=== PATIENT | female | born 1990 | race African-American/Black ===

== ENCOUNTER 2019-10-01 09:37 | Emergency (ER) | payer MEDICAID, SELFPAY ==
[2019-10-01 09:37] VITALS: BP 139/91; PULSE 112; RESP 16; TEMP 36.1; O2SAT 100; BMI 31.6
--- NOTE | 2019-10-01 09:44 | RAD_ITS ---
STUDY: X-RAY - LEFT FOOT CLINICAL: Female, 29 years old. PT FELL DOWN STAIRS, PAIN AND SWELLING ACROSS TOP OF FOOT TECHNIQUE: 3 view(s) of the foot. COMPARISON: None. FINDINGS: Normal talus, calcaneus, and tarsal bones. Normal visualized subtalar, talonavicular, calcaneocuboid, tarsal and tarsometatarsal articulations. Normal metatarsi. Normal metatarsophalangeal joint of the great toe. Normal tibial and fibular sesamoid bones. Normal interphalangeal joint of the great toe. Normal phalanges of the great toe. Normal second through fifth metatarsophalangeal joints. Normal interphalangeal joints and phalanges of the lesser toes. The soft tissue structures are unremarkable. RAD/Foot min 3 Views IMPRESSION: Normal x-ray examination of the foot. Electronically Signed: Jessy Banks, at 10:12 EDT Tel , Service support ,
--- NOTE | 2019-10-01 09:45 | ED.VIS.GEN ---
History of Present Illness Chief Complaint: Lower Extremity Injury Informant: Patient Onset: Yesterday Narrative: Patient states that she was playing with the kids last night when she fell down 2 stairs resulting in a inversion injury to the left foot. She states when she woke today she could not bear weight. Past Medical History - Allergies and Home Meds Allergies/Adverse Reactions: Allergies ibuprofen Allergy (Verified 10/01/19 09:39) Hives naproxen Allergy (Verified 10/01/19 09:39) Hives Review of Systems General: Denies: Chills, Fever, Sweats Eyes: Denies: Visual changes - bilaterally, Diplopia ENT: Denies: Rhinorrhea, Sore throat Cardiovascular: Denies: Chest pain, Palpitations Respiratory: Denies: Dyspnea, Cough, Dyspnea on exertion Gastrointestinal: Denies: Abdominal pain, Nausea, Vomiting, Diarrhea, Melena, Hematochezia Genitourinary: Denies: Dysuria, Hematuria, Frequency Musculoskeletal: Reports: Swelling, Extremity Pain. Denies: Back pain Skin: Denies: Rash, Wounds Neurological: Denies: Headache, Weakness, Numbness Physical Exam Vital Signs/Narrative: Vital Signs Temp Pulse Resp BP Pulse Ox 10/01/19 09:37 97 F L 112 H 16 139/91 H 100 Inital Vital Signs reviewed: Yes General: Well nourished, Well developed, No Acute Distress Head: Normocephalic, Atraumatic Eyes: Perrl, EOMI ENT: Moist mucous membranes, No rhinorrhea Neck: Supple, Nontender Cardiovascular: Regular rate, Regular rhythm, No murmurs Respiratory: No distress, CTA bilaterally, Chest nontender Abdomen: Soft, Nontender, Nondistended, Normal bowel sounds Back: Nontender, Normal Inspection Extremities: No edema, - - Patient has tenderness swelling and some ecchymosis over the lateral aspect of the left midfoot. Tender palpation fifth and fourth metatarsal. There is no ankle pain. No proximal fibular pain. Achilles intact. No tibial shaft pain. Skin: Normal color, No rash Neurological: Alert, Oriented x3, Cranial nerves II-XII grossly intact, Normal Strength, Normal Sensation Psychological: Normal affect, Normal Mood Diagnostic/Tx/Re-eval Clinical Impression(s) from Imaging Studies Foot X-Ray 10/01/19 09:44 IMPRESSION: Normal x-ray examination of the foot. Electronically Signed: Jessy Banks, at 10:12 EDT Tel , Service support , - Medical Decision Making X-rays were negative for fracture. We will treat this as a sprain. Will apply Dirk wrap. Continued ice and Motrin. Patient declines crutches. Follow-up 10 to 14 days if not improved ED Disposition - Plan for ED Patient: Disposition: Home or Assisted Living Diagnosis: Sprain of left foot Instructions: ED Sprain Foot Referrals: Arlet Chu [Other] - 10-14 Days if not better
== END 2019-10-01 10:31 | disposition home or self-care (01) ==
PROVIDERS: Emergency Provider Emergency Medicine
DX: S93.602A Unspecified sprain of left foot, initial encounter (principal); W10.9XXA Fall (on) (from) unspecified stairs and steps, initial encounter; Z88.6 Allergy status to analgesic agent
CPT/HCPCS: 73630; 99282

== ENCOUNTER 2020-03-12 10:37 | Emergency (ER) | payer MEDICAID, SELFPAY ==
[2020-03-12 10:38] VITALS: BP 156/90; PULSE 99; RESP 18; TEMP 36.6; O2SAT 98; BMI 32.8
--- NOTE | 2020-03-12 10:49 | US_ITS ---
STUDY: FIRST TRIMESTER OBSTETRICAL ULTRASOUND REASON FOR EXAM: Female, 30 years old pelvic pain w preg HCG 71 LMP: 01/23/2020 TECHNIQUE: Transabdominal and Transvaginal TECHNICAL QUALITY: Adequate. PRIOR ULTRASOUND: None. FINDINGS: There is no demonstrated intrauterine gestational sac.. The estimated gestation age (EGA) by LMP is 7 weeks, 0 days. The estimated date of delivery (MYLA) by LMP is 10/29/2020. The uterus measures 8.8 x 5.8 x 5.6 cm. There is no demonstrated uterine fibroid. The cervix is closed. The right ovary measures 3.6 x 1.8 x 1.6 cm. There is no right ovarian cyst. There is no visualized right adnexal mass or complex lesion. The left ovary measures 3.9 x 1.8 x 1.8 cm. There is no left ovarian cyst. There is no visualized left adnexal mass or complex lesion. There is no fluid in the cul de sac. US/Transvaginal w/Preg US IMPRESSION: Normal pelvic ultrasound without an intrauterine gestational sac. Differential diagnosis includes early intrauterine , early ectopic , or missed . Correlation with serial beta-hCG measurements is recommended. Electronically Signed: Merrill Herrera MD at 12:39 EST Tel , Service support ,
[2020-03-12 11:05] LABS: Hematocrit 41.4 % (37-47); Hemoglobin 13.5 g/dL (12.0-15.0)
--- NOTE | 2020-03-12 11:07 | ED.DCSUM_ITS ---
History of Present Illness Chief Complaint: Vag Bld, Preg Narrative: Patient presenting secondary to pelvic cramping and vaginal bleeding. Patient is a G7, P4 at 7 weeks gestation. Patient states that she is type B+ blood. Patient states that yesterday she had some pelvic cramping and today she had some pink-colored discharge. She denies any large loss of fluid or any loss of tissue. Patient does report that she has had some miscarriages in the past. She recently underwent treatment for both a yeast infection and a UTI by her FINANCIAL REPORTING ACCOUNTANT. She denies any other constitutional symptoms such as fever nausea or vomiting. Review of systems otherwise negative. Past Medical History - Allergies and Home Meds Allergies/Adverse Reactions: Allergies ibuprofen Allergy (Verified 03/12/20 10:40) Hives naproxen Allergy (Verified 03/12/20 10:40) Hives Primary Care Physician: Angelita Cheung,Out of [NON-STAFF] - Prior records reviewed: Yes Past Medical History: None Smoking Status: Current every day smoker Alcohol: None Drugs: None Review of Systems Genitourinary: Reports: - - Pelvic cramping and pink vaginal discharge Physical Exam Vital Signs/Narrative: Vital Signs Temp Pulse Resp BP Pulse Ox 03/12/20 10:38 97.8 F 99 18 156/90 H 98 Inital Vital Signs reviewed: Yes General: Well nourished, Well developed, No Acute Distress Head: Normocephalic, Atraumatic Eyes: Perrl, EOMI ENT: Moist mucous membranes, No rhinorrhea Neck: Supple, Nontender Cardiovascular: Regular rate, Regular rhythm Respiratory: No distress Abdomen: Soft, Nontender, Nondistended, Normal bowel sounds Back: Nontender, Normal Inspection Extremities: Nontender, No edema Skin: Normal color, No rash Neurological: Alert, Oriented x3, Cranial nerves II-XII grossly intact, Normal Strength, Normal Sensation Psychological: Normal affect, Normal Mood Diagnostic/Tx/Re-eval Clinical Impression(s) from Imaging Studies Obstetrics Ultrasound 03/12/20 10:49 IMPRESSION: Normal pelvic ultrasound without an intrauterine gestational sac. Differential diagnosis includes early intrauterine , early ectopic , or missed . Correlation with serial beta-hCG measurements is recommended. Electronically Signed: Merrill Herrera MD at 12:39 EST Tel , Service support , Laboratory Data 03/12/20 03/12/20 03/12/20 10:50 10:50 10:55 Hgb 13.5 Hct 41.4 HCG, Quant 71 H Urine Color Urine Clarity Urine pH Ur Specific [place] Urine Protein Urine Glucose (UA) Urine Ketones Urine Occult Blood Urine Nitrite Urine Bilirubin Urine Urobilinogen Ur Leukocyte Esterase Urine RBC Urine WBC Ur Squamous Epith Cells Urine Bacteria Urine Mucus Blood Type B POSITIVE 03/12/20 10:55 Hgb Hct HCG, Quant Urine Color Yellow Urine Clarity Cloudy Urine pH 6.0 Ur Specific [place] 1.025 Urine Protein 15 H Urine Glucose (UA) Normal Urine Ketones Negative Urine Occult Blood 250 H Urine Nitrite Negative Urine Bilirubin Negative Urine Urobilinogen Normal Ur Leukocyte Esterase 25 H Urine RBC 0-5 SEEN Urine WBC 0-5 SEEN Ur Squamous Epith Cells 0-5 SEEN Urine Bacteria 1+ Urine Mucus 0 SEEN Blood Type - Medical Decision Making Patient presented secondary to pelvic cramping vaginal bleeding and a 7-week . Labs were obtained. Patient showed me her quantitative hCG from which was in the 600 range, today it is down to 70. She is confirmed as being type B+ blood. Urinalysis shows no signs of infection she is not anemic. I did a bedside ultrasound on the patient and was not able to confirm an intrauterine , so formal ultrasound was obtained. This shows no signs of intrauterine products of conception and also shows no obvious evidence of ectopic although this is not totally ruled out given her still positive yet declining hCG. Patient is nontoxic, she was given Tylenol for treatment of pain. Educated her that this likely is a miscarriage but also informed her of signs and symptoms for which to return. She voiced understanding. She has a repeat blood draw with her FINANCIAL REPORTING ACCOUNTANT tomorrow, she was recommended to keep that. Patient was discharged in stable condition. ED Disposition - Plan for ED Patient: Disposition: Home or Assisted Living Diagnosis: Miscarriage Instructions: ED MISCARRIAGE Completed Additional Instructions: Follow-up with your FINANCIAL REPORTING ACCOUNTANT as scheduled tomorrow
[2020-03-12 11:19] LABS: Mucous, Urine 0 SEEN /hpf (<or=2+)
[2020-03-12 11:23] LABS: Color, Urine Yellow (Yellow); Glucose, Dipstick Normal (Normal); Ketone-Dipstick Negative (Negative); Leukocyte Esterase-Dipstick 25 /ul (Negative); Nitrite-Dipstick Negative (Negative); Occult Blood-Urine 250 /ul (Negative); Protein-Dipstick 15 mg/dl (Negative); Specific Gravity, Urine 1.025 (1.002-1.030); Urine Bilirubin Dipstick Negative (Negative); Urine Clarity Cloudy (Clear); Urine Urobilinogen Normal (Normal)
[2020-03-12 11:24] LABS: hCG Titer Quant., Serum 71 mIU/mL (1-3)
[2020-03-12 11:30] LABS: Bacteria 1+ /hpf (None Seen); Red Blood Cells-Urine 0-5 SEEN /hpf (0-5); Squamous Epithelial Cells - UA 0-5 SEEN /hpf (5-10); White Blood Cells 0-5 SEEN /hpf (0-5)
[2020-03-12] MEDS: Acetaminophen 500 MG Tablet 1000 MG PO (13:13)
[2020-03-12 13:15] VITALS: BP 148/88; PULSE 80; RESP 18; O2SAT 99
== END 2020-03-12 13:17 | disposition home or self-care (01) ==
PROVIDERS: Emergency Provider Emergency Medicine
DX: O03.9 Complete or unspecified spontaneous abortion without complication (principal); O03.88 Urinary tract infection following complete or unspecified spontaneous abortion; O99.331 Smoking (tobacco) complicating pregnancy, first trimester; F17.200 Nicotine dependence, unspecified, uncomplicated; Z3A.01 Less than 8 weeks gestation of pregnancy
CPT/HCPCS: 36415; 76817; 81001; 84702; 85014; 85018; 86900; 86901; 99282

== ENCOUNTER 2020-03-13 03:30 | Emergency (ER) | payer MEDICAID, SELFPAY ==
[2020-03-12 10:38] VITALS: BMI 32.8
[2020-03-13 03:33] VITALS: BP 133/90; PULSE 104; RESP 16; TEMP 36.7; O2SAT 98; BMI 33.0
--- NOTE | 2020-03-13 03:45 | ED.DCSUM_ITS ---
History of Present Illness Chief Complaint: Informant: Patient Pain: Pelvic Pain Onset: Yesterday Context: Gradual Onset Timing: Continuous Quality: Cramping, Sharp Issue: Vaginal bleeding, Passing clots. Negative for: Passing tissue Narrative: Patient is a 30-year-old female G7, P4 at 7 weeks gestation presenting with increased vaginal bleeding and pelvic cramping. Patient was seen yesterday in the ER, about 15 hours ago for spotting and pelvic cramping. At that time she had transvaginal ultrasound which did not show any intrauterine but also did not show any free fluid or adnexal/ovarian mass. Her quant was only 71 result patient is likely having a miscarriage. Patient's engineering designer is at [facility] in [place]. Patient states over the past few hours she is gone through about 4 pads an hour and is having large clots. She is having worsening pain. She has not passed anything that looks like products of conception. She denies any other complaints at this time. Past Medical History - Allergies and Home Meds Allergies/Adverse Reactions: Allergies ibuprofen Allergy (Verified 03/13/20 03:33) Hives naproxen Allergy (Verified 03/13/20 03:33) Hives Primary Care Physician: Care Physician,No Primary [Primary Care Provider] - Past Medical History: None Surgical History: noncontributory Lives: With Family Smoking Status: Current every day smoker Review of Systems General: Denies: Chills, Fever, Sweats Eyes: Denies: Visual changes - bilaterally, Diplopia ENT: Denies: Rhinorrhea, Sore throat Cardiovascular: Denies: Chest pain, Palpitations Respiratory: Denies: Dyspnea, Cough, Dyspnea on exertion Gastrointestinal: Reports: Abdominal pain. Denies: Nausea, Vomiting, Diarrhea, Melena, Hematochezia Genitourinary: Reports: - - Vaginal bleeding, pelvic cramping. Denies: Dysuria, Hematuria, Frequency Musculoskeletal: Denies: Back pain, Extremity Pain Skin: Denies: Rash, Wounds Neurological: Denies: Headache, Weakness, Numbness Physical Exam Vital Signs/Narrative: Vital Signs Temp Pulse Resp BP Pulse Ox 03/13/20 03:33 98.1 F 104 H 16 133/90 H 98 Inital Vital Signs reviewed: Yes General: Well nourished, Well developed Head: Normocephalic, Atraumatic Eyes: Perrl, EOMI ENT: Moist mucous membranes, No rhinorrhea Neck: Supple, Nontender Cardiovascular: Regular rate, Regular rhythm, No murmurs Respiratory: No distress, CTA bilaterally, Chest nontender Abdomen: Soft, Nontender, Nondistended, Normal bowel sounds. Negative for: Tender, Guarding, Rebound tenderness : Speculum exam: Normal external genitalia, No vaginal lesions, No vaginal discharge, Mild active bleeding, Small clots. Negative for: Cervicitis Bimanual exam: No cervical motion tenderness, Nontender uterus, Cervical dilation Back: Nontender, Normal Inspection. Negative for: CVA tenderness Extremities: Nontender, No edema Skin: Normal color, No rash Neurological: Alert, Oriented x3, Cranial nerves II-XII grossly intact, Normal Strength, Normal Sensation Psychological: Normal affect Diagnostic/Tx/Re-eval Laboratory Data 03/13/20 03/13/20 03:45 03:45 WBC 11.8 H RBC 4.74 Hgb 13.8 Hct 41.7 MCV 88.0 MCH 29.1 MCHC 33.1 RDW Std Deviation 41.8 RDW Coeff of Jack[place] 12.9 Plt Count 329 MPV 9.3 Immature Gran % (Auto) 0.300 Neut % (Auto) 61.9 Lymph % (Auto) 27.1 [place] % (Auto) 8.4 Eos % (Auto) 2.0 Baso % (Auto) 0.3 Absolute Neuts (auto) 7.3 Absolute Lymphs (auto) 3.19 Nucleated RBC % 0 Sodium 138 Potassium 3.4 L Chloride 108 H Carbon Dioxide 22.0 Anion Gap 8 BUN 10 Creatinine 0.92 Estim Creat Clear Calc 86.95 Est GFR (MDRD) Af Amer 92 Est GFR (MDRD) Non-Af 76 BUN/Creatinine Ratio 10.9 Glucose 133 H Calcium 8.7 Total Bilirubin 0.20 AST 11 L ALT 14 Alkaline Phosphatase 78 Total Protein 7.4 Albumin 3.3 Globulin 4.1 Albumin/Globulin Ratio 0.8 L - Treatment/Re-Evaluation Treatment: Morphine IV Re-Evaluation: Feels Better - Medical Decision/Diagnostic Studies Patient evaluated for worsening pelvic pain and vaginal bleeding. She states she 7 weeks and was diagnosed with a miscarriage earlier today. Patient was seen in our ER and at that time had a quant of 71 and a pelvic ultrasound that showed no intrauterine gestation but also did not show any free fluid or adnexal masses. Patient was discharged home with likely miscarriage. She states since she is at home she had worsening pain and is now having passage of clots and bleeding. Patient is mildly tachycardic has a normal blood pressure. Suspect tachycardia is more secondary to pain. Will recheck H&H to make sure there is been no change. Her hemoglobin is stable. Bedside fast ultrasound performed by myself not show any free fluid in the abdomen. I did not recheck quant given that it was done earlier today. Patient is B+ and does not require RhoGam. Patient is given morphine for pain control which does improve her symptoms. She cannot have NSAIDs secondary to allergies. Pelvic exam shows an os that is open but does not show any profuse bleeding. I did discuss with OB on-call, Dr. Moreau, who recommend she call the [place] office in the morning for same-day follow-up. Patient be discharged home with [facility] for pain control. Dr. Moreau is agreeable with this. Patient is counseled on signs and symptoms requiring return to the emergency room. Patient verbalizes agreement and understand this plan. Patient discharged home in stable and improved condition. ED Disposition - Plan for ED Patient: Disposition: Home or Assisted Living Diagnosis: Inevitable Instructions: Miscarriage Prescriptions: Hydrocodone Bitart/Apap 5-325 [[facility] [place] 5MG-325MG] 1 tab PO Q4H PRN PRN 2 Days #10 tab PRN Reason: Pain Prescription Printed Additional Instructions: Please call your HOME CARE MUSIC THERAPIST office in the morning to schedule close follow-up. Let them know that you were seen in the ER for miscarriage.
[2020-03-13 03:52] LABS: Absolute Lymphocyte Count 3.19 X10^3/uL (0.83-4.51); Absolute Neutrophil Count 7.3 X10^3/uL (2.0-7.7); Basophil# 0.04 X10^3/uL; Basophil% 0.3 % (0-1); Eosinophil# 0.23 X10^3/uL; Hematocrit 41.7 % (37-47); Hemoglobin 13.8 g/dL (12.0-15.0); Lymphocyte # 3.19 X10^3/ul (4.0); Lymphocyte % 27.1 % (19-41); Mean Corp Hgb Conc 33.1 g/dL (32-36); Mean Corpuscular Hgb 29.1 pg (27.0-32.0); Mean Platelet Vol. 9.3 fl (6.2-12.0); Monocyte# 0.99 X10^3/uL; Monocyte% 8.4 % (0-10); NRBC Flagged by Analyzer 0 % (0-5); Neutrophil # 7.29 X10^3/uL (2.7-7.7); Neutrophil % 61.9 % (47-70); Platelet Count 329 K/mm3 (150-450); RBC Distribution Width CV 12.9 % (11.6-14.6); RBC Distribution Width SD 41.8 fl (35.1-43.9); Red Blood Count 4.74 M/mm3 (4.2-5.4); White Blood Count 11.8 K/mm3 (4.4-11.0)
[2020-03-13] MEDS: Morphine 4 MG/ML Syringe IV ×2 (03:54→04:47)
[2020-03-13] MEDS: 0.9% Normal Saline 1,000 ML 1000 ML IV (03:54)
[2020-03-13 04:09] LABS: ALB/GLOB Ratio 0.8 RATIO (0.9-2.4); AST(SGOT) 11 U/L (15-37); Alanine Aminotransfer ALT/SGPT 14 U/L (13-56); Albumin, Serum 3.3 g/dL (3.2-5.0); Alkaline Phosphatase 78 U/L (45-117); Anion Gap 8 (5-15); BUN 10 mg/dL (7-18); BUN/Creat Ratio 10.9 RATIO (10-20); Calcium,Total 8.7 mg/dL (8.5-10.1); Chloride 108 mmol/L (98-107); Creatinine, Serum 0.92 mg/dL (0.55-1.02); EST Glomerular Filtration Rate 76 mL/min (>60); Est Glom Filt Rate - Afr Amer 92 mL/min (>60); Estimated Creatinine Clearance 86.95 ml/min; Globulin 4.1 g/dL (2.2-4.2); Glucose 133 mg/dL (74-106); Potassium 3.4 mmol/L (3.5-5.1); Protein, Total 7.4 g/dL (6.4-8.2); Sodium Level 138 mmol/L (136-145)
[2020-03-13 05:02] VITALS: BP 134/69; PULSE 62; RESP 15; O2SAT 97
== END 2020-03-13 05:35 | disposition home or self-care (01) ==
PROVIDERS: Emergency Provider Emergency Medicine
DX: O03.4 Incomplete spontaneous abortion without complication (principal); F17.200 Nicotine dependence, unspecified, uncomplicated; O99.331 Smoking (tobacco) complicating pregnancy, first trimester; Z3A.01 Less than 8 weeks gestation of pregnancy
CPT/HCPCS: 80053; 85025; 96361; 96374; 96375; 99283; J7030; A4216

== ENCOUNTER 2021-07-09 07:40 | Emergency (ER) | payer MEDICAID, SELFPAY ==
[2021-07-09 07:41] VITALS: BP 124/91; PULSE 73; RESP 16; TEMP 36.6; O2SAT 99; BMI 28.1
[2021-07-09] MEDS: predniSONE 20 MG Tablet 60 MG PO (07:56)
--- NOTE | 2021-07-09 07:56 | EDS_ITS ---
HPI History of Present Illness Chief Complaint: Allergic Reaction Informant: patient Narrative Narrative: Presents with increasing upper lip swelling since yesterday morning. No tongue swelling no trouble breathing. She was started on Flagyl for BV 2 days ago has not taken any yesterday discharge has improved. No history of similar. Started on from urgent care for BV. No history of similar no BREONNA inhibitor's no family history of abnormal swelling. No PCP. Poor dentition however denies any worsening pain or fevers. Prior similar symptoms: No PFSH PFSH Home Medications prednisone 60 mg PO DAILY #12 tab 07/09/21 [Rx Last Taken Unknown] Allergy/AdvReac Type Severity Reaction Status Date / Time ibuprofen Allergy Hives Verified 07/09/21 07:43 metronidazole [From Flagyl] Allergy Swelling Verified 07/09/21 07:43 naproxen Allergy Hives Verified 07/09/21 07:43 Social History Smoking Status: Current every day smoker tobacco type: cigarettes ROS ROS ED Constitutional Constitutional ED: Denies chills, fever(s) or sweats Eyes Eyes: Denies change in vision ENT ENT ED: Reports other Details: Upper lip swelling ; Denies dysphagia or sore throat Cardiovascular Cardiovascular: Denies chest pain, leg edema, palpitations or racing heartbeat Respiratory/Chest Respiratory/Chest: Denies cough, dyspnea or dyspnea on exertion Gastrointestinal Gastrointestinal: Denies abdominal pain, diarrhea, nausea or vomiting Genitourinary Genitourinary ED: Denies dysuria, hematuria or urinary frequency Musculoskeletal Musculoskeletal: Denies back pain, extremity pain or neck pain Integumentary Denies rash or wounds Neurologic Neurologic: Denies headache(s), paresthesias or weakness EXAM Physical Exam Const Vital Signs: 07/09/21 07:41 07/09/21 08:05 Temperature 98 F Temperature Source Temporal Pulse Rate 73 Respiratory Rate 16 14 Blood Pressure 124/91 H Blood Pressure Mean 102 Pulse Ox 99 Oxygen Delivery Method Room Air Positive well nourished and well developed General Appearance ED: well developed and NAD HEENT Reports moist mucous membranes HEENT Narrative: There is swelling of the upper lip, there is no induration no tenderness. There is poor dentition of the upper teeth however there is no focal abscess. No tongue swelling airway patent no stridor. normocephalic and atraumatic Eyes PERRL, EOMs intact bilaterally and conjunctivae normal General Eye ED: Yes normal appearance of both eyes Neck no lymphadenopathy and supple General: Negative for tenderness Chest Wall Chest: Negative for tenderness Resp normal respiratory effort and normal air movement Effort and Inspection: symmetric chest movement; Negative for respiratory distress Cardio regular rate, regular rhythm and no murmurs Peripheral Pulses: pulses 2+ throughout GI normal to inspection, nondistended, normoactive bowel sounds and non-tender Palpation: Negative for guarding or rebound tenderness present Back/Spine no CVA tenderness and no thoracic nor lumbar tenderness Extremity normal to inspection General Extremety ED: Negative for edema or tenderness General Extremity: Negative for edema Neuro oriented x3 and no sensory deficits noted Sensorium / Orientation: awake and alert Skin no rashes or lesions noted and no wounds MDM MDM MDM Narrative Medical decision making narrative: Patient nontoxic vital stable presenting with angioedema of the upper lip. New medicines with Flagyl did not take any today. There is no tongue or airway involvement at this time. She declined any additional Benadryl for which she took yesterday. She is started on prednisone. She will hold her Flagyl. She is given ENT and PCP to follow-up with for outpatient allergy testing. Strict return precautions. All questions were answered. Discharge Plan Triage Chief Complaint: Allergic Reaction ED Provider: Mao Wren Dx/Rx/DC Orders Clinical Impression: Angioedema, Swollen upper lip Instructions: ED ADVERSE DRUG REACTION Allergic, ED Angioedema Prescriptions: New prednisone 20 MG tablet 60 mg PO DAILY Qty: 12 RF: 0 Stand Alone Forms: ED Work / School Excuse Primary Care Provider: Care Physician,No Primary Referrals: Mane Urena MD [STAFF PHYSICIAN] - 1 Week Naveed Stoner MD [STAFF PHYSICIAN] - 1 Week Care Physician,No Primary [Primary Care Provider] - Activity Restrictions/Additional Instructions: Stop Flagyl, finished prednisone, use Benadryl every 6 hours as needed. Follow- up with ENT as an outpatient for allergy testing. Disposition Disposition: Home, Self Care Discharge Date/Time: 07/09/21 08:07
[2021-07-09 08:05] VITALS: RESP 14
== END 2021-07-09 08:07 | disposition home or self-care (01) ==
LOC: ED 08:03
PROVIDERS: Emergency Provider Emergency Medicine; Visit Provider Emergency Medicine
DX: T78.3XXA Angioneurotic edema, initial encounter (principal); F17.210 Nicotine dependence, cigarettes, uncomplicated; R22.0 Localized swelling, mass and lump, head
CPT/HCPCS: 99282

== ENCOUNTER 2021-07-16 10:39 | Emergency (ER) | payer MEDICAID, SELFPAY ==
[2021-07-16 10:40] VITALS: BP 131/102; PULSE 81; RESP 18; TEMP 36.2; O2SAT 100; BMI 27.8
--- NOTE | 2021-07-16 11:13 | EDS_ITS ---
HPI History of Present Illness Chief Complaint: Abd Pain Informant: patient Narrative Narrative: Patient states she is having more of her abdominal pain. This episode has been going on for about a month and a half. It seems little worse today as she has had multiple bowel movements this morning that are soft. She did vomit once. This evidently has been a long recurrent problem. She has seen emergency departments for this. But has no primary physician. She has never seen gastroenterology. She had what sounds like umbilical hernia surgery in the past. No other surgery. She states most of her abdominal pain is in the lower abdomen. She is not having dysuria or discharge. She was recently treated for BV with Flagyl which caused some angioedema. But she is off that. She did take about 5 days of prednisone recently. She does not know if she is ever been on that before. She has no history of Crohn's or ulcerative colitis in her the family. It sounds like she has never had a colonoscopy or endoscopy. She does not know anything that makes this better or worse. She has never got an answer as to the cause of it. PFSH PFSH Medical History no medical history Home Medications prednisone 60 mg PO DAILY #12 tab 07/09/21 [Rx Last Taken Unknown] dicyclomine 20 mg PO TID #20 tab 07/16/21 [Rx Last Taken Unknown] hydrocodone-acetaminophen 1 tab PO Q6H PRN 3 Days #10 tab 07/16/21 [Rx Last Taken Unknown] ondansetron 4 mg PO Q8H PRN #10 tab 07/16/21 [Rx Last Taken Unknown] Allergy/AdvReac Type Severity Reaction Status Date / Time ibuprofen Allergy Hives Verified 07/16/21 10:40 metronidazole [From Flagyl] Allergy Swelling Verified 07/16/21 10:40 naproxen Allergy Hives Verified 07/16/21 10:40 Social History Smoking Status: Current every day smoker tobacco type: cigarettes ROS ROS ED Constitutional Constitutional ED: Denies chills, fever(s) or sweats ENT ENT ED: Denies rhinorrhea Cardiovascular Cardiovascular: Denies chest pain or palpitations Respiratory/Chest Respiratory/Chest: Denies cough, dyspnea or sputum Gastrointestinal Gastrointestinal: Reports abdominal pain, diarrhea, nausea and vomiting; Denies constipation or melena Genitourinary Genitourinary ED: Denies dysuria, hematuria or urinary frequency Musculoskeletal Musculoskeletal: Denies back pain Integumentary Denies rash Neurologic Neurologic: Denies headache(s) or weakness Psychiatric Psychiatric: Denies anxiety or depression Endocrine Endocrinology: Denies polydipsia or polyuria Allergic/Immunologic Allergic/Immunologic ED: Denies urticaria EXAM Physical Exam Const Vital Signs: 07/16/21 10:40 Temperature 97.2 F L Temperature Source Temporal Pulse Rate 81 Respiratory Rate 18 Blood Pressure 131/102 H Blood Pressure Mean 111 Pulse Ox 100 Oxygen Delivery Method Room Air Positive well nourished and well developed General Appearance ED: well developed and NAD HEENT Reports moist mucous membranes Negative for trauma Eyes General Eye ED: Negative for pale conjunctiva or scleral icterus Neck supple and no JVD Chest Wall inspection of chest normal Resp normal respiratory effort and clear to auscultation bilaterally Effort and Inspection: Negative for pain with movement Auscultation: Negative for rales, rhonchi or wheezes Cardio regular rate and regular rhythm GI normal to inspection, nondistended, normoactive bowel sounds and non-tender GI Narrative: Patient says that the pain is mostly in the lower abdomen. But there is really no tenderness. There is no palpable hernia including umbilical hernia. There is no rebound guarding or mass. Overall exam is actually quite benign. Palpation: soft Back/Spine no CVA tenderness Neuro oriented x3 Sensorium / Orientation: alert Psych mental status grossly normal Skin no rashes or lesions noted MDM MDM MDM Narrative Medical decision making narrative: Patient CBC shows anemia. This is new but her last level was well over a year ago. She states her last menstrual period just ended Friday and was normal. She has normal menstrual cycles. No blood in the stool or black stools. Electrolytes are overall unremarkable. Liver function test and urine were unremarkable. I will check the patient. She is complaining of more pain. It is kind of diffusely on the right side. Its not pelvic. She states she has had this off and on for a long time. Yet she has never seen SURGICAL APPLIANCES SALESPERSON or GI for this. With her increasing pain, will check CT here. She is denying really pelvic as a source of her pain and she has no discharge by history. We are pending these results. CT scan showed no acute process. I did do an online prescribing report. She has a single prescription for a small number of hydrocodone a year ago. Plan will be to try to calm her symptoms. I am Ana refer her to GI primary doctor and [employer] SAL[employer]ERSON. We discussed reasons to return. She has had these pains off and on for some time. This episode has been 1 to 2 months. But they have been going off and on for years. Lab Data Attestation: I reviewed the patient's lab results. Labs: Laboratory Results - last 24 hr 07/16/21 07/16/21 07/16/21 11:16 12:30 12:30 WBC 10.8 RBC 4.36 Hgb 10.7 L Hct 34.6 L MCV 79.4 L MCH 24.5 L MCHC 30.9 L RDW Std Deviation 49.0 H RDW Coeff of Jackeline 17.0 H Plt Count 369 MPV 9.5 Immature Gran % (Auto) 0.300 Neut % (Auto) 62.6 Lymph % (Auto) 28.9 Rush % (Auto) 6.9 Eos % (Auto) 1.0 Baso % (Auto) 0.3 Absolute Neuts (auto) 6.7 Absolute Lymphs (auto) 3.11 Nucleated RBC % 0 Sodium 140 Potassium 3.9 Chloride 111 H Carbon Dioxide 25.0 Anion Gap 4 L BUN 7 Creatinine 0.88 Estim Creat Clear Calc 90.08 Est GFR (MDRD) Af Amer 96 Est GFR (MDRD) Non-Af 79 BUN/Creatinine Ratio 7.9 L Glucose 109 H Calcium 8.8 Total Bilirubin 0.10 L AST 10 L ALT 14 Alkaline Phosphatase 68 Total Protein 7.0 Albumin 3.4 Globulin 3.6 Albumin/Globulin Ratio 0.9 Lipase 91 Serum , Qual Urine Color Yellow Urine Clarity Clear Urine pH 7.0 Ur Specific [place] 1.020 Urine Protein Negative Urine Glucose (UA) Normal Urine Ketones Negative Urine Occult Blood Negative Urine Nitrite Negative Urine Bilirubin Negative Urine Urobilinogen Normal Ur Leukocyte Esterase Negative Urine RBC 0 SEEN Urine WBC 0 SEEN Ur Squamous Epith Cells 0 SEEN Urine Bacteria 0 SEEN Urine Mucus 0 SEEN 07/16/21 12:30 WBC RBC Hgb Hct MCV MCH MCHC RDW Std Deviation RDW Coeff of Jackeline Plt Count MPV Immature Gran % (Auto) Neut % (Auto) Lymph % (Auto) Rush % (Auto) Eos % (Auto) Baso % (Auto) Absolute Neuts (auto) Absolute Lymphs (auto) Nucleated RBC % Sodium Potassium Chloride Carbon Dioxide Anion Gap BUN Creatinine Estim Creat Clear Calc Est GFR (MDRD) Af Amer Est GFR (MDRD) Non-Af BUN/Creatinine Ratio Glucose Calcium Total Bilirubin AST ALT Alkaline Phosphatase Total Protein Albumin Globulin Albumin/Globulin Ratio Lipase Serum , Qual NEGATIVE Urine Color Urine Clarity Urine pH Ur Specific [place] Urine Protein Urine Glucose (UA) Urine Ketones Urine Occult Blood Urine Nitrite Urine Bilirubin Urine Urobilinogen Ur Leukocyte Esterase Urine RBC Urine WBC Ur Squamous Epith Cells Urine Bacteria Urine Mucus Radiography Diagnostic Testing: Clinical Impression(s) from Imaging Studies Abdomen/Pelvis CT 07/16/21 14:04 IMPRESSION: No acute abnormality is seen. Electronically Signed: Peter Cortes MD at 14:53 EDT , Discharge Plan Triage Chief Complaint: Abd Pain Other Complaint: Nausea/Vomiting/Diarrhea ED Provider: Kevin Johnson Dx/Rx/DC Orders Clinical Impression: Abdominal pain Instructions: ED Abdominal Pain Unkn Cause Fem Prescriptions: New ondansetron 4 mg tablet,disintegrating 4 mg PO Q8H PRN (Reason: nausea and vomiting) Qty: 10 RF: 0 hydrocodone-acetaminophen 5-325 mg tablet 1 tab PO Q6H PRN (Reason: pain) 3 Days Qty: 10 RF: 0 dicyclomine 20 mg tablet 20 mg PO TID Qty: 20 RF: 0 No Action prednisone 20 MG tablet 60 mg PO DAILY Qty: 12 RF: 0 Primary Care Provider: Care Physician,No Primary Referrals: Maryanne Enamorado MD [STAFF PHYSICIAN] - As soon as possible Sarah Garnett DO [STAFF PHYSICIAN] - 1-2 Weeks Chris,DO Pierre [STAFF PHYSICIAN] - 1-2 Weeks Care Physician,No Primary [Primary Care Provider] - Disposition Disposition: Home, Self Care
[2021-07-16 11:22] LABS: Bacteria 0 SEEN /hpf (None Seen); Mucous, Urine 0 SEEN /hpf (<or=2+); Red Blood Cells-Urine 0 SEEN /hpf (0-5); Squamous Epithelial Cells - UA 0 SEEN /hpf (5-10); White Blood Cells 0 SEEN /hpf (0-5)
[2021-07-16 11:26] LABS: Color, Urine Yellow (Yellow); Glucose, Dipstick Normal (Normal); Ketone-Dipstick Negative (Negative); Leukocyte Esterase-Dipstick Negative /ul (Negative); Nitrite-Dipstick Negative (Negative); Occult Blood-Urine Negative /ul (Negative); Protein-Dipstick Negative (Negative); Urine Bilirubin Dipstick Negative (Negative); Urine Clarity Clear (Clear); Urine Urobilinogen Normal (Normal)
[2021-07-16] MEDS: 0.9% Normal Saline 1,000 ML 1000 ML IV (12:36)
[2021-07-16] MEDS: Ondansetron 4 MG/2 ML Vial IV (12:36)
[2021-07-16 12:39] LABS: Absolute Lymphocyte Count 3.11 X10^3/uL (0.83-4.51); Absolute Neutrophil Count 6.7 X10^3/uL (2.0-7.7); Basophil# 0.03 X10^3/uL; Basophil% 0.3 % (0-1); Eosinophil# 0.11 X10^3/uL; Hematocrit 34.6 % (37-47); Hemoglobin 10.7 g/dL (12.0-15.0); Lymphocyte # 3.11 X10^3/ul (0.83-4.51); Lymphocyte % 28.9 % (19-41); Mean Corp Hgb Conc 30.9 g/dL (32-36); Mean Corpuscular Hgb 24.5 pg (27.0-32.0); Mean Corpuscular Volume 79.4 fL (81-99); Mean Platelet Vol. 9.5 fl (6.2-12.0); Monocyte# 0.74 X10^3/uL; Monocyte% 6.9 % (0-10); NRBC Flagged by Analyzer 0 % (0-5); Neutrophil # 6.73 X10^3/uL (2.7-7.7); Neutrophil % 62.6 % (47-70); Platelet Count 369 K/mm3 (150-450); Red Blood Count 4.36 M/mm3 (4.2-5.4); White Blood Count 10.8 K/mm3 (4.4-11.0)
--- NOTE | 2021-07-16 12:51 | CM.ED ---
SW Note Referral Source: Case Find Referral Reason: No Primary Care Physician (PCP) SW reviewed chart and noted that patient has no PCP. SW provided patient with list of [facility] and [facility] Physician List for reference. SW also provided patient with handout ?Where to go When?. No other issues or concerns voiced at this time. SW remains available for any additional needs. Plan: Provided patient with PCP information Terri HOPE
[2021-07-16 12:52] LABS: ALB/GLOB Ratio 0.9 RATIO (0.9-2.4); AST(SGOT) 10 U/L (15-37); Alanine Aminotransfer ALT/SGPT 14 U/L (13-56); Albumin, Serum 3.4 g/dL (3.2-5.0); Alkaline Phosphatase 68 U/L (45-117); Anion Gap 4 (5-15); BUN 7 mg/dL (7-18); BUN/Creat Ratio 7.9 RATIO (10-20); Calcium,Total 8.8 mg/dL (8.5-10.1); Chloride 111 mmol/L (98-107); Creatinine, Serum 0.88 mg/dL (0.55-1.02); EST Glomerular Filtration Rate 79 mL/min (>60); Est Glom Filt Rate - Afr Amer 96 mL/min (>60); Estimated Creatinine Clearance 90.08 ml/min; Globulin 3.6 g/dL (2.2-4.2); Glucose 109 mg/dL (74-106); Lipase 91 U/L (73-393); Potassium 3.9 mmol/L (3.5-5.1); Sodium Level 140 mmol/L (136-145)
[2021-07-16 13:21] LABS: Internal QC Validated? YES +Cl - CLEAR BKGD; Pregnancy, Serum, hCG Quali. NEGATIVE Negative
--- NOTE | 2021-07-16 14:04 | CT_ITS ---
STUDY: CT ABDOMEN AND PELVIS WITH CONTRAST REASON FOR EXAM: Female, 31 years old. One month history of nausea and vomiting. Abdominal pain. Prior umbilical hernia repair. RADIATION DOSAGE (If Supplied By Facility): CTDIvol = ( 13.18 ) mGy, DLP = ( 850.49 ) mGycm TECHNIQUE: Transaxial images were obtained from the dome of the diaphragm to the symphysis pubis without oral contrast. IV 75mL Isovue-370 was administered. Sagittal and coronal images were reconstructed. Individualized dose optimization techniques were used for this CT. COMPARISON: None. FINDINGS: The visualized lung bases are unremarkable. The visualized portions of the heart are within normal limits. Normal liver. Normal gallbladder and extrahepatic biliary system. Normal spleen. Normal pancreas. Normal bilateral adrenal glands. Normal right kidney. Normal left kidney. Normal visualized stomach. Normal small intestine. Normal colon. The appendix is visualized and appears normal. Normal abdominal aorta. Normal inferior vena cava. Normal retroperitoneum. Normal urinary bladder. Follicles are seen in both ovaries. Normal abdominal wall. Normal osseous structures. CT/Abdomen/Pelvis W IV Cont ONLY IMPRESSION: No acute abnormality is seen. Electronically Signed: Peter Cortes MD at 14:53 EDT ,
[2021-07-16] MEDS: Morphine 4 MG/ML Syringe IV (14:57)
== END 2021-07-16 15:20 | disposition home or self-care (01) ==
PROVIDERS: Emergency Provider Emergency Medicine; Visit Provider Emergency Medicine
DX: R10.30 Lower abdominal pain, unspecified (principal); R11.2 Nausea with vomiting, unspecified; R19.7 Diarrhea, unspecified; D64.9 Anemia, unspecified; F17.210 Nicotine dependence, cigarettes, uncomplicated
CPT/HCPCS: 74177; 80053; 81001; 83690; 84703; 85025; 96361; 96374; 96375; 99284; J7030; Q9967; A4216; J2405

== ENCOUNTER → 2021-08-01 | Outpatient (CLI) | payer MEDICAID, SELFPAY ==
[2021-08-01 11:38] LABS: Hematocrit 35.3 % (37-47); Hemoglobin 10.7 g/dL (12.0-15.0); Mean Corp Hgb Conc 30.3 g/dL (32-36); Mean Corpuscular Hgb 24.2 pg (27.0-32.0); Mean Corpuscular Volume 79.9 fL (81-99); Mean Platelet Vol. 9.3 fl (6.2-12.0); Platelet Count 324 K/mm3 (150-450); RBC Distribution Width SD 49.1 fl (35.1-43.9); Red Blood Count 4.42 M/mm3 (4.2-5.4); White Blood Count 9.3 K/mm3 (4.4-11.0)
== END | disposition home or self-care (01) ==
LOC: LAB 11:13
PROVIDERS: Referring Provider Obstetrics & Gynecology; Visit Provider Obstetrics & Gynecology
DX: Z01.818 Encounter for other preprocedural examination (principal)
CPT/HCPCS: 36415; 85027; 86850; 86900; 86901

== ENCOUNTER 2021-08-02 09:22 | Day surgery (SDC) | payer MEDICAID, SELFPAY ==
[2021-08-02] VITALS (9 sets, daily range): BP systolic 116–144; BP diastolic 84–102; PULSE 65–91; RESP 18; TEMP 36.4–37.1; O2SAT 98–100; BMI 26.9
--- NOTE | 2021-08-02 | EMB_PTH ---
PATIENT: MITUL KUMAR LOC: [facility] [place] U#:[id number] AGE/SX: 31/F ROOM: RE08/02/[address]: Dr. Jennifer Delacruz DO : 1990 BED: DIS: 08/02/2021 SPEC #: [id number] RECD: 08/02/21 14:02 STATUS: RICARDO KALI #: [id number] NIEVES: 08/02/21 00:[address]: Jennifer Delacruz DEPT: SURGICAL PATHOLOGY RECD BY: Gerald Green ENTERED: 08/03/21 08:15 SP TYPE: ENDOM BX/C OT DR: No Primary Care Phys Tissues: Endometrium, NOS Procedures: Surgery Specimen Level IV HEADER OPERATION: Hysteroscopy, D & C Symphion, polypectomy PRE-OP DIAGNOSIS: Uterine polyp TISSUE SUBMITTED: Endometrial curettings MICROSCOPIC DIAGNOSIS Endometrial curettings: Secretory endometrium. 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 See comment. JOY:albert 08/06/2021 COMMENT Immunohistochemistry ([id number]) for surrogate HPV marker (p16) supports the above diagnosis. This case was discussed with Dr. Delacruz?s nurse on 09/14/2021. Case has been reviewed in consultation with Dr. Shi who concurs with the above diagnosis. IDC:AM MICROSCOPIC DESCRIPTION Slides are reviewed. GROSS DESCRIPTION Received in fixative is one container labeled with the patient's name and designated endometrial curettings. The specimen consists of multiple fragments of hemorrhagic soft tissue that in aggregate measure 5 x 3 x 0.3 cm. The entire specimen is submitted in two cassettes. / JOY:albert 08/03/2021 TC:5 CPT: 41931
--- NOTE | 2021-08-02 | IMM_PTH ---
PATIENT: MITUL KUMAR LOC: [facility] – [place] U#:[id number] AGE/SX: 31/F ROOM: RE08/02/[address]: Dr. Jennifer Delacruz DO : 1990 BED: DIS: 08/02/2021 SPEC #: [id number] RECD: 08/06/21 11:35 STATUS: RIACRDO REFrancesca #: [id number] NIEVES: 08/02/21 00:[address]: Jennifer Delacruz DEPT: IMMUNOHISTOCHEMISTRY RECD BY: Michelle Salazar ENTERED: 08/06/21 11:35 SP TYPE: IMMUNO OTHR DR: No Primary Care Phys Tissues: Endometrium, NOS Procedures: p16 (initial) KI-67 (add) PHYSICIAN & INSTITUTION [place] [id number] SPECIMEN INFORMATION: Tissue Source: Endometrial curettings Clinical Info: Uterine polyp Specimen Number: [id number] #1 CPT code: 97110, 19225 METHODOLOGY: Deparaffinized sections of prefer/formalin-fixed tissue or PAP/DQ stained slides are incubated with monoclonal/polyclonal antibodies/oligonucleotide probes. Localization is made via biotin free immunoperoxidase method. Appropriate controls are performed and reacted as expected. Results on target cell population are indicated in the following table: RESULTS: ANTIBODY / CLONE RESULT Block 1 P16 (E6H4) positive, focal block staining Ki-67 (30-9) positive, moderate These tests were developed and their performance characteristics determined by [facility]. They may not have been cleared or approved by the U.S. Food and Drug Administration. The FDA has determined that such clearance or approval is not necessary. The above immunohistochemical/dualISH markers are ordered and reviewed by the Pathologist. INTERPRETATION: Endometrial curettings: Focal mild to moderate squamous dysplasia. JOY:albert 08/07/2021
[2021-08-02 10:15] LABS: Internal QC Validated? YES +Cl - CLEAR BKGD; Pregnancy, Urine Negative Negative
[2021-08-02] MEDS: Lactated Ringers 1,000 ML 15 ML IV (10:24)
--- NOTE | 2021-08-02 11:03 | DCINST_ITS ---
Discharge Instructions Diet Discharge Diet: No restrictions Activity Discharge Activity: May Drive (once you are more than 24 hours out from surgery) and May Shower May resume sexual activity in: 1 week (no tampons, intercourse, hot tubs, baths, pools for 1 week) Weight Bearing Status: Weight bearing as tolerated Dressing / Incision Call your doctor if you observe: Fever of 101 or Higher, Coldness, Increased Pain, Numbness or Tingling, Change in Color, Inability to urinate, Inability to have a bowel movement, Using more than 1 pad per hour, Shortness of breath, Dizziness, Fainting spells, Swelling in the ankles, Chest pain, Increased palpitations (irregular heartbeat), Calf discomfort and Uncontrolled pain Follow Up Care Please Follow Up With: Jennifer Delacruz DO When: 1-2 weeks Test Results: Test results from this visit will be discussed in further detail at your follow- up appointment, if applicable. Discharge Plan Admission Primary Reason for Your Visit: surgery Attending Provider: Jennifer Delacruz Primary Care Provider: Care Physician,Daphney Primary Discharge Orders/Prescriptions Prescriptions: No Action NK Referrals / Follow Up: Care Physician,No Primary [Primary Care Provider] - Disposition Disposition (needs filled in before D/C Order can be placed): Home, Self Care
--- NOTE | 2021-08-02 11:05 | PCM.OPRPT ---
Problems Associated Problem List Diagnoses (1) DUB (dysfunctional uterine bleeding): Report of Operation Date of Procedure: 08/02/21 Pre-Operative Diagnosis: DUB, polyp noted on pelvic ultrasound Post-Operative Diagnosis: DUB Surgery/Procedure Performed:: Hysteroscopy, D&C Description of Surgical Findings:: Normal appearing uterine cavity and cervix, without fibroids or polyps noted. Bilateral tubal ostia visualized. Endometrium thick appearing. Good descent of uterus and cervix. Surgeon: Jennifer Delacruz transmission systems operator: None Type of Anesthesia: MAC Special Medications: None Specimen's removed: Endometrial curettings Drains: None Estimated Blood Loss (mL): < 50 cc Fluids Replaced: 650 cc deficit with fluid noted in drape/bag Description of Procedure: Patient was taken to the operating room where MAC anesthesia was found be adequate. She is prepped and draped in dorsal lithotomy position using yellowfin stirrups. A weighted speculum was placed to expose the cervix. The anterior lip of the cervix was grasped with a single-tooth tenaculum. The cervix was serially dilated to accommodate the hysteroscope. The Symphion hysteroscope was advanced to the fundus of uterus and using normal saline the uterus was distended. A normal-appearing uterine cavity was noted with no polyps or fibroids within the uterus. No polyps noted in the cervix. Bilateral tubal ostia were visualized. The endometrium was thick appearing. The Symphion hysteroscope was removed. A sharp curettage was performed for a large amount of tissue. Endometrial curettings were sent to pathology for review. Bleeding was hemostatic. All instruments were from the vagina. Vaginal sweep was performed. Instrument counts were correct. The patient was taken to recovery in stable condition. Grafts/Implants Used: None Procedure Start Time: 10:47 Procedure Stop Time: 11:01 Complications None Admit VTE Documentation VTE Present on Admission: No VTE Mechan Device Prophylaxis: SCD's
== END 2021-08-02 12:12 | disposition home or self-care (01) ==
LOC: SDC 09:23 → AC 09:24
PROVIDERS: Referring Provider Obstetrics & Gynecology; Visit Provider Obstetrics & Gynecology
PROC: 0UB98ZZ Excision of Uterus, Via Natural or Artificial Opening Endoscopic (ICD-10-PCS; CPT 58558; principal; 2021-08-02 11:20)
DX: N93.8 Other specified abnormal uterine and vaginal bleeding (principal); F31.9 Bipolar disorder, unspecified; F41.9 Anxiety disorder, unspecified; F12.90 Cannabis use, unspecified, uncomplicated; F17.210 Nicotine dependence, cigarettes, uncomplicated
CPT/HCPCS: 58558; 00952; 81025; 86850; 86900; 86901; 88305; 88341; 88342; J7120; J2405

== ENCOUNTER → 2021-08-22 | Outpatient (CLI) | payer MEDICAID, SELFPAY ==
--- NOTE | 2021-08-22 09:55 | RAD_ITS ---
PROCEDURE: Contrast Upper GI with Small Bowel Follow Through DATE OF EXAMINATION: 08/22/2021. INDICATION: Female, 31 years old. One month history of lower abdominal pain and weight loss. FLUOROSCOPY TIME (if supplied): (1:24) minutes/seconds. 22 images were obtained. TECHNIQUE: Radiographic and fluoroscopic images of the distal esophagus, stomach, and entire small intestine were obtained following the oral ingestion of barium. COMPARISON: None. FINDINGS: The billet cutter film of the abdomen demonstrates a normal bowel gas pattern. There are no abnormal calcifications or organomegaly demonstrated. The visualized osseous structures are normal. The esophagus is unremarkable. No evidence of obstruction. No evidence of gastroesophageal reflux. The stomach and duodenum are unremarkable. No ulceration is seen. A single contrast small bowel follow through exam demonstrates the small bowel to have no evidence for stricture, ulceration or mass. The transit time is normal at 90 minutes. RAD/Upper GI/w Small Bowel IMPRESSION: 1. Unremarkable air contrast upper GI series and small bowel follow-through examination. Electronically Signed: Peter Cortes MD at 14:44 EDT ,
== END | disposition home or self-care (01) ==
PROVIDERS: Referring Provider Internal Medicine Gastroenterology; Visit Provider Internal Medicine Gastroenterology
DX: R10.9 Unspecified abdominal pain (principal)
CPT/HCPCS: 74246; 74248

== ENCOUNTER 2021-09-05 05:26 | Day surgery (SDC) | payer MEDICAID, SELFPAY ==
[2021-09-05] VITALS (7 sets, daily range): BP systolic 103–124; BP diastolic 65–84; PULSE 87–102; RESP 16; TEMP 36.3–36.7; O2SAT 97–100; BMI 27.7
[2021-09-05 05:53] LABS: Internal QC Validated? YES +Cl - CLEAR BKGD; Pregnancy, Urine Negative Negative
[2021-09-05] MEDS: Lactated Ringers 1,000 ML 15 ML IV (05:59)
--- NOTE | 2021-09-05 06:27 | HP.PCM_ITS ---
HPI - General General Date of Admission: 09/05/21 Date of Service: 09/05/21 Chief Complaint: abdominal pain HPI Narrative MITUL KUMAR, is a 31 F who presents for endoscopic evaluation of her abdominal pain. She states she is having more of her abdominal pain.? This episode has been going on for about a month and a half.? It seems little worse today as she has had multiple bowel movements this morning that are soft.? She did vomit once.? This evidently has been a long recurrent problem.? She has seen emergency departments for this.? But has no primary physician.? She has never seen gastroenterology.? She had what sounds like umbilical hernia surgery in the past.? No other surgery.? She states most of her abdominal pain is in the lower abdomen.? She is not having dysuria or discharge.? She was recently treated for BV with Flagyl which caused some angioedema.? But she is off that.? She did take about 5 days of prednisone recently.? She does not know if she is ever been on that before.? She has no history of Crohn's or ulcerative colitis in her the family.? She does not know anything that makes this better or worse.? She has never got an answer as to the cause of it. [facility] Medical History (Updated 08/30/21 @ 13:44 by Joyce Garnett) Anxiety Bipolar disorder Depression Loose, teeth Marijuana use PTSD (post-traumatic stress disorder) Smoker Wears glasses Home Medications NK 07/31/21 [History Last Taken Unknown] Allergy/AdvReac Type Severity Reaction Status Date / Time ibuprofen Allergy Hives Verified 09/05/21 05:54 metronidazole [From Flagyl] Allergy Swelling Verified 09/05/21 05:54 naproxen Allergy Hives Verified 09/05/21 05:54 Surgical History (Updated 07/31/21 @ 13:21 by Elsie Ott) History of D&C Social History Smoking Status: Current every day smoker tobacco type: cigarettes ROS Review of Systems ROS Unobtainable: other Constitutional Constitutional: Denies fatigue, fever(s), poor appetite, weight gain or weight loss ENT HEENT: Denies mouth lesions Cardiovascular Cardiovascular: Denies abdominal bloating, abdominal edema or abdominal pain Respiratory/Chest Respiratory/Chest: Denies change in mental status, change in phlegm color, chest congestion or chest tightness Gastrointestinal Gastrointestinal: Denies belching, bloating, change in bowel habits, change in stool character, chewing difficulty, coffee ground emesis, constipation, cramping, diarrhea, dyspepsia, dysphagia, early satiety, excessive flatus, fecal incontinence, heartburn, hematemesis, hematochezia, hemorrhoids, loose stools, melena, nausea, odynophagia, rectal bleeding, tenesmus, vomiting or weight changes Genitourinary Genitourinary: Denies abdominal discomfort, burning urination or itching Musculoskeletal Musculoskeletal: Reports as per HPI; Denies muscle weakness or myalgias Integumentary Integumentary: Denies jaundice Neurologic Neurologic: Denies lack of coordination or weakness Psychiatric Psychiatric: Denies confusion, depression, memory loss, mood swings, paranoia or suicidal ideation Endocrine Endocrinology: Denies systems reviewed and no addt'l complaints, except as documented Hematologic/Lymphatic Hematologic/Lymphatic: Denies anemia, easy bleeding, easy bruising or lymphadenopathy Allergic/Immunologic Allergic/Immunologic: Denies systems reviewed and no addt'l complaints, except as documented Vital Signs Vital Signs Vital Signs: 09/05/21 05:54 09/05/21 05:54 Temperature 97.7 F L Temperature Source Temporal Pulse Rate 89 Respiratory Rate 16 Respiratory Pattern Normal Blood Pressure 124/73 H Blood Pressure Mean 90 Blood Pressure Source Monitor Blood Pressure Position Sitting Blood Pressure Location Right Arm Pulse Ox 100 Oxygen Delivery Method Room Air Weight Weight: 171 lb 15.369 oz Body Mass Index (BMI) 27.7 Physical Exam Const alert General Appearance: cooperative Orientation / Consciousness: oriented to person HEENT hearing grossly normal bilaterally Head and Scalp: normal to inspection Face and Sinus: face symmetric Nose: external nose normal Mouth: oral and palatal mucosa normal Eyes conjunctivae normal General Eye: normal appearance of both eyes Neck full ROM General: normal visual inspection Lymph Lymphatic: no lymphadenopathy noted Chest inspection of chest normal and palpation of chest normal Chest: symmetrical chest wall rise Resp normal respiratory effort Effort and Inspection: able to speak in complete sentences Cardio regular rate GI non-distended Percussion: normal to percussion Rectal Exam: deferred Neuro Speech: speech normal Gait (Neuro): normal gait Results Lab / Micro Data Labs: Laboratory Results - last 24 hr 09/05/21 05:45: Urine Test Negative Assessment & Plan Assessment/Plan (1) Abdominal pain: PLAN: The differential diagnosis for abdominal pain does include peptic ulcer disease, H. pylori, gastritis, functional bowel disease, sphincter of Oddi syndrome, atypical reflux disease. She should undergo endoscopy to evaluate her GI tract for any intraluminal pathology. She was explained alternatives, risk, benefits including not withstanding bleeding, infection, sepsis, perforation, need for emergent . She have an ASA of 1. (2) Constipation:
--- NOTE | 2021-09-05 06:30 | EGD_PTH ---
PATIENT: MITUL KUMAR LOC: EN U#:[id number] AGE/SX: 31/F ROOM: RE09/05/[address]: Dr. Pierre Perez DO : 1990 BED: DIS: 09/05/2021 SPEC #: [id number] RECD: 09/05/21 10:54 STATUS: RICARDO KALI #: [id number] NIEVES: 09/05/21 06:[address]: Pierre Perez DEPT: SURGICAL PATHOLOGY RECD BY: Deidra Alcala ENTERED: 09/05/21 11:28 SP TYPE: EGD BIOPSY OT DR: Daphney Primary Care Phys Tissues: A - Duodenum, NOS B - Esophagus, NOS Procedures: Special Stain Group II Surgery Specimen Level IV Alcian Blue/PAS (control) HEADER OPERATION: EGD ([facility] [place]), biopsy PRE-OP DIAGNOSIS: Abdominal pain, constipation TISSUE SUBMITTED: A ? Duodenal biopsy, B ? Distal esophagus biopsy MICROSCOPIC DIAGNOSIS A. Duodenum, biopsy: Fragments of duodenal mucosa, no pathologic diagnosis. B. Distal esophagus, biopsy: Fragments of gastroesophageal mucosa with a few cells with intestinal metaplasia (goblet cell metaplasia). Moderate chronic inflammation. Negative for dysplasia. See comment. JOY:albert 09/06/2021 COMMENT B. Alcian blue/PAS stain with matched control is used in the evaluation of the specimen. MICROSCOPIC DESCRIPTION Slides are reviewed. GROSS DESCRIPTION A - Received in fixative is one container labeled with the patient's name and designated duodenal biopsy. The specimen consists of two irregular fragments of light martinez soft tissue that in aggregate measure 0.6 x 0.4 x 0.1 cm. The specimen is totally submitted in one cassette. B - Received in fixative is one container labeled with the patient's name and designated distal esophagus biopsy. The specimen consists of two irregular fragments of light martinez soft tissue that in aggregate measure 0.8 x 0.5 x 0.1 cm. The specimen is totally submitted in one cassette. / JOY:albert 09/05/2021 TC:3 CPT: 51080 x2, 08826
--- NOTE | 2021-09-05 06:52 | OP.EGD_ITS ---
Patient Name: Christelle Stoll Procedure Date: 09/05/2021 6:29 AM Date of : 1990 Age: 31 Procedure: Upper GI endoscopy Indications: Epigastric abdominal pain, Dyspepsia Providers: Pierre Perez DO Referring MD: No Primary Care Physician Medicines: Monitored Anesthesia Care Patient Profile: This is a 31 year old female. Refer to note in patient chart for documentation of history and physical. Patient has symptoms of chronic abdominal cramping and chronic epigastric abdominal pain. Complications: No immediate complications. Procedure: Pre-Anesthesia Assessment: - Prior to the procedure, a History and Physical was performed, and patient medications and allergies were reviewed. The patient is competent. The risks and benefits of the procedure and the sedation options and risks were discussed with the patient. All questions were answered and informed consent was obtained. Patient identification and proposed procedure were verified by the physician in the pre-procedure area. Mental Status Examination: alert and oriented. Airway Examination: normal oropharyngeal airway and neck mobility. Respiratory Examination: clear to auscultation. CV Examination: normal. Prophylactic Antibiotics: The patient does not require prophylactic antibiotics. Prior Anticoagulants: The patient has taken no previous anticoagulant or antiplatelet agents. After reviewing the risks and benefits, the patient was deemed in satisfactory condition to undergo the procedure. The anesthesia plan was to use moderate sedation / analgesia (conscious sedation). Immediately prior to administration of medications, the patient was re-assessed for adequacy to receive sedatives. The heart rate, respiratory rate, oxygen saturations, blood pressure, adequacy of pulmonary ventilation, and response to care were monitored throughout the procedure. The physical status of the patient was re-assessed after the procedure. After obtaining informed consent, the endoscope was passed under direct vision. Throughout the procedure, the patient's blood pressure, pulse, and oxygen saturations were monitored continuously. The Endoscope was introduced through the mouth, and advanced to the second part of duodenum. The upper GI endoscopy was accomplished without difficulty. The patient tolerated the procedure well. Scope In: 6:36:38 AM Scope Out: 6:42:19 AM Total Procedure Duration Time 0 hours 5 minutes 41 seconds Findings: LA Grade A (one or more mucosal breaks less than 5 mm, not extending between tops of 2 mucosal folds) esophagitis with no bleeding was found 36 to 38 cm from the incisors. Biopsies were taken with a cold forceps for histology. Verification of patient identification for the specimen was done. Estimated blood loss was minimal. A medium amount of food (residue) was found in the gastric body. Patchy mildly erythematous mucosa without active bleeding and with no stigmata of bleeding was found in the first portion of the duodenum and in the second portion of the duodenum. Biopsies were taken with a cold forceps for histology. Verification of patient identification for the specimen was done. Estimated blood loss was minimal. Impression: - LA Grade A reflux esophagitis. Biopsied. - A medium amount of food (residue) in the stomach. - Erythematous duodenopathy. Biopsied. Recommendation: - Discharge patient to home. - Resume previous diet. - Continue present medications. - Await pathology results. Procedure Code(s): --- Professional --- 37565, Esophagogastroduodenoscopy, flexible, transoral; with biopsy, single or multiple CPT copyright 2017 [employer]. All rights reserved. The codes documented in this report are preliminary and upon ear nose and throat specialist review may be revised to meet current compliance requirements. Pierre Perez DO 09/05/2021 6:51:54 AM This report has been signed electronically. Number of Addenda: 1 Note Initiated On: 09/05/2021 6:29 AM Addendum Number: 1 Addendum Date: 11/14/2021 6:04:39 AM MAC was used as sedation for this procedure. Pierre Perez DO 11/14/2021 6:04:43 AM This report has been signed electronically.
--- NOTE | 2021-09-05 06:53 | OP.CCLET_ITS ---
11/14/2021 No Primary Care Physician Re : Upper GI end[facility] This procedure was performed on Sunday, September 05, 2021. My impressions and recommendations are as follows: Impressions : - LA Grade A reflux esophagitis. Biopsied. - A medium amount of food (residue) in the stomach. - Erythematous duodenopathy. Biopsied. Recommendations : - Discharge patient to home. - Resume previous diet. - Continue present medications. - Await pathology results. My findings are described in the full procedure note, which is enclosed. If I can be of further assistance, please feel free to contact me at . Sincerely, Pierre Perez DO 09/05/2021 6:51:54 AM This report has been signed electronically.
== END 2021-09-05 07:48 | disposition home or self-care (01) ==
LOC: EN 05:26 → AC 05:27
PROVIDERS: Anesthesiology; Visit Provider Internal Medicine Gastroenterology
PROC: 0DJ08ZZ Inspection of Upper Intestinal Tract, Via Natural or Artificial Opening Endoscopic (ICD-10-PCS; CPT 43235; principal; 2021-09-05 06:25)
DX: K20.90 Esophagitis, unspecified without bleeding (principal); K22.70 Barrett's esophagus without dysplasia; K31.89 Other diseases of stomach and duodenum; F17.210 Nicotine dependence, cigarettes, uncomplicated; F12.90 Cannabis use, unspecified, uncomplicated
CPT/HCPCS: 43239; 81025; 88305; 88313; J7120; J2405

== ENCOUNTER 2022-01-24 08:05 | Emergency (ER) | payer MEDICAID, SELFPAY ==
[2022-01-24 08:06] VITALS: BP 125/83; PULSE 94; RESP 18; TEMP 36.6; O2SAT 100; BMI 26.6
[2022-01-24 08:14] VITALS: O2SAT 98
--- NOTE | 2022-01-24 08:21 | EKG12_ITS ---
Test Reason : Blood Pressure : / mmHG Vent. Rate : 090 BPM Atrial Rate : 090 BPM P-R Int : 132 ms QRS Dur : 074 ms QT Int : 368 ms P-R-T Axes : 074 058 053 degrees QTc Int : 450 ms Normal sinus rhythm Normal ECG Confirmed by ROXANA LOVE, KOLE ([id number]), acquisition editor JAMEEL KERN ([id number]) on 01/25/2022 10:56:37 AM Referred By: SÁNCHEZ Confirmed By:KOLE SCHMIDT MD
--- NOTE | 2022-01-24 08:32 | EX.ED.DYSGE1 ---
HPI History of Present Illness Chief Complaint: Cough Informant: patient Narrative Narrative: 2 days of nonproductive cough. Yesterday posttussive syncope. No chest pains or shortness of breath. Denies fevers or myalgias. Sick contacts with child. Denies past medical history. Denies any daily medications. Prior similar symptoms: No PFSH PFSH Medical History Anxiety Bipolar disorder Depression Loose, teeth Marijuana use PTSD (post-traumatic stress disorder) Smoker Wears glasses Home Medications NK 07/31/21 [History Last Taken Unknown] Allergy/AdvReac Type Severity Reaction Status Date / Time ibuprofen Allergy Hives Verified 01/24/22 08:09 metronidazole [From Flagyl] Allergy Swelling Verified 01/24/22 08:09 naproxen Allergy Hives Verified 01/24/22 08:09 Surgical History History of D&C Social History Smoking Status: Current every day smoker tobacco type: cigarettes ROS ROS ED Constitutional Constitutional ED: Denies chills, fever(s) or sweats Eyes Eyes: Denies change in vision ENT ENT ED: Denies dysphagia or sore throat Cardiovascular Cardiovascular: Denies chest pain, leg edema, palpitations or racing heartbeat Respiratory/Chest Respiratory/Chest: Reports cough; Denies dyspnea or dyspnea on exertion Gastrointestinal Gastrointestinal: Denies abdominal pain, diarrhea, nausea or vomiting Genitourinary Genitourinary ED: Denies dysuria, hematuria or urinary frequency Musculoskeletal Musculoskeletal: Denies back pain, extremity pain or neck pain Integumentary Denies rash or wounds Neurologic Neurologic: Denies headache(s), paresthesias or weakness EXAM Physical Exam Const Vital Signs: 01/24/22 08:06 01/24/22 08:14 Temperature 98 F Temperature Source Temporal Pulse Rate 94 Respiratory Rate 18 Respiratory Effort Normal Non-Labored Respiratory Depth Normal Respiratory Pattern Normal Blood Pressure 125/83 H Blood Pressure Mean 97 Pulse Ox 100 Oxygen Delivery Method Room Air Room Air Positive well nourished and well developed General Appearance ED: well developed and NAD HEENT Reports moist mucous membranes HEENT Narrative: Upper inner lip abrasion no lacerations or any active breathing. No ecchymosis. No dental loosening. normocephalic Eyes PERRL, EOMs intact bilaterally and conjunctivae normal General Eye ED: Yes normal appearance of both eyes Neck no lymphadenopathy and supple General: Negative for tenderness Chest Wall Chest: Negative for tenderness Resp normal respiratory effort and normal air movement Effort and Inspection: symmetric chest movement; Negative for respiratory distress Cardio regular rate, regular rhythm and no murmurs Peripheral Pulses: pulses 2+ throughout GI normal to inspection, nondistended, normoactive bowel sounds and non-tender Palpation: Negative for guarding or rebound tenderness present Back/Spine no CVA tenderness and no thoracic nor lumbar tenderness Extremity normal to inspection General Extremety ED: Negative for edema or tenderness General Extremity: Negative for edema Neuro oriented x3, CN's II-XII intact bilaterally and no sensory deficits noted Sensorium / Orientation: awake and alert Skin no rashes or lesions noted and no wounds MDM MDM MDM Narrative Medical decision making narrative: Patient vital stable nontoxic. Normal lung sounds. History of posttussive syncope, this is a vasovagal reaction. EKG normal QT. Sinus rhythm. I discussed viral syndrome with the patient. Discussed adjunct treatment for her symptoms. Monitoring symptoms follow-up with her PCP. Return precautions. All questions were answered. EKG Initial EKG: Attestation: I personally reviewed and interpreted this EKG as follows: Comments: Sinus rate of 90, ST changes, T wave version anterior leads. QTc 450. No old for comparison. Discharge Plan Triage Chief Complaint: Cough ED Provider: Mao Wren Dx/Rx/DC Orders Clinical Impression: Upper respiratory infection, viral, Post-tussive syncope Instructions: Understanding Vasovagal Syncope, ED URI, Viral, No Abx (Adult) Prescriptions: No Action NK Primary Care Provider: Care Physician,No Primary Referrals: Bijan Valiente MD [Med Staff - Shuttle Route Vehicle Operator] - 1 Week Care Physician,No Primary [Primary Care Provider] - Activity Restrictions/Additional Instructions: You have a viral syndrome. History with posttussive syncope. Monitor symptoms. Follow-up as an outpatient. Return if any worsening symptoms. Disposition Disposition: Home, Self Care Discharge Date/Time: 01/24/22 08:54
== END 2022-01-24 08:54 | disposition home or self-care (01) ==
PROVIDERS: Emergency Provider Emergency Medicine; Visit Provider Emergency Medicine
DX: J06.9 Acute upper respiratory infection, unspecified (principal); R05.8 Other specified cough; F17.210 Nicotine dependence, cigarettes, uncomplicated
CPT/HCPCS: 93005; 99282